=== PATIENT | male | born 2000 | race African-American/Black ===

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

== ENCOUNTER 2019-05-08 14:00 | Emergency (ER) | payer OTHER, SELFPAY ==
--- NOTE | 2019-05-08 14:49 | ER ---
Nurse's Notes [facility] Name: Ward Hall Jr Age: 18 yrs Sex: Male : 2000 Arrival Date: 05/08/2019 Time: 14:03 Bed 5 Private MD: Diagnosis: Acute pharyngitis Presentation: 05/08 14:06 Presenting complaint: Sore throat, body aches, and chills x 2 days. Denies N/V/D/fever. hb Transition of care: patient was not received from another setting of care. Onset of symptoms was May 07, 2019. Risk Assessment: Do you want to hurt yourself or someone else? Patient reports no desire to harm self or others. Initial Sepsis Screen: Does the patient meet any 2 criteria? No. Patient's initial sepsis screen is negative. Does the patient have a suspected source of infection? No. Patient's initial sepsis screen is negative. Care prior to arrival: None. 14:06 Method Of Arrival: Ambulatory hb 14:06 Acuity: EMILIO 4 hb Historical: - Allergies: 14:07 No Known Allergies; hb - Home Meds: 14:07 Zyrtec 10 mg Oral tab [Active]; hb - PMHx: 14:07 None; hb - PSHx: 14:07 Tonsillectomy; Ear Tubes; hb - Immunization history:: Adult Immunizations up to date. - Social history:: Smoking status: Patient/guardian denies using tobacco. - Ebola Screening: : No symptoms or risks identified at this time. Screenin:15 Abuse screen: Denies threats or abuse. Denies injuries from another. Nutritional ss screening: No deficits noted. Tuberculosis screening: Never had TB. Fall Risk None identified. Assessment: 14:15 General: Appears in no apparent distress. comfortable, Behavior is calm, cooperative, ss Reports feeling ill for 12-24 hours, fatigue for 12-24 hours. Pain: Complains of pain in generalized body aches Pain currently is 5 out of 10 on a pain scale. Quality of pain is described as aching, Pain began "last night" Is continuous. Neuro: Level of Consciousness is awake, alert, obeys commands, Oriented to person, place, time, situation. Cardiovascular: Capillary refill < 3 seconds is brisk in bilateral fingers. Respiratory: Airway is patent Respiratory effort is even, unlabored, Respiratory pattern is regular, symmetrical, Breath sounds are clear bilaterally. GI: Patient currently denies diarrhea, nausea, vomiting. : No signs and/or symptoms were reported regarding the genitourinary system. EENT: Nares are clear Oral mucosa is moist. Throat is clear. Derm: Skin is intact, is healthy with good turgor, Skin is dry, Skin is pink, warm \\T\\ dry. normal. Musculoskeletal: Circulation, motion, and sensation intact. Range of motion: intact in all extremities, Swelling absent. Vital Signs: 14:07 BP 120 / 69; Pulse 90; Resp 16; Temp 98.4; Pulse Ox 100% on R/A; Weight 68.95 kg; hb Height 5 ft. 10 in. (177.80 cm); Pain 5/10; 14:07 Body Mass Index 21.81 (68.95 kg, 177.80 cm) hb ED Course: 14:03 Patient arrived in ED. mr 14:04 Zina May FNP-C is [facility]. kb 14:04 Rene Payan MD is Attending Physician. kb 14:06 Triage completed. hb 14:07 Arm band placed on. hb 14:15 Meghan Perez, RN is Primary Nurse. ss 14:15 Patient has correct armband on for positive identification. Bed in low position. Call ss light in reach. 14:24 Flu Sent. ss 14:24 Strep Sent. ss 14:52 No provider procedures requiring assistance completed. IV discontinued, intact, ss bleeding controlled, No redness/swelling at site. Pressure dressing applied. Administered Medications: No medications were administered Outcome: 14:48 Discharge ordered by MD. kb 14:52 Discharged to home ambulatory. ss 14:52 Condition: good 14:52 Discharge instructions given to patient, Instructed on discharge instructions, follow up and referral plans. medication usage, Demonstrated understanding of instructions, follow-up care, medications. 14:52 Patient left the ED. ss Signatures: Zina May FNP-C FNP-Bonilla Aggie Chanel mr Meghan Perez, RN RN Delmi Ricketts RN RN
--- NOTE | 2019-05-08 14:49 | EDPHYS ---
Physician Documentation [facility] Name: Ward Hall Jr Age: 18 yrs Sex: Male : 2000 Arrival Date: 05/08/2019 Time: 14:03 Bed 5 Private MD: ED Physician Rene Payan HPI: 05/08 14:19 This 18 yrs old Black Male presents to ER via Ambulatory with complaints of Body aches. kb 14:20 The patient presents with sore throat. The patient describes throat pain as constant. kb Onset: The symptoms/episode began/occurred last night. Severity of symptoms: At their worst the symptoms were mild, moderate, in the emergency department the symptoms are unchanged. Modifying factors: The symptoms are alleviated by nothing, the symptoms are aggravated by swallowing, Patient's oral intake status: good Denies contact with similarly ill indivduals. Associated signs and symptoms: Pertinent positives: flu-like symptoms, myalgias, Pertinent negatives fever. The patient has not experienced similar symptoms in the past. The patient has not recently seen a physician. Historical: - Allergies: 14:07 No Known Allergies; hb - Home Meds: 14:07 Zyrtec 10 mg Oral tab [Active]; hb - PMHx: 14:07 None; hb - PSHx: 14:07 Tonsillectomy; Ear Tubes; hb - Immunization history:: Adult Immunizations up to date. - Social history:: Smoking status: Patient/guardian denies using tobacco. - Ebola Screening: : No symptoms or risks identified at this time. ROS: 14:17 Eyes: Negative for injury, pain, redness, and discharge, Neck: Negative for injury, kb pain, and swelling, Cardiovascular: Negative for chest pain, palpitations, and edema, Respiratory: Negative for shortness of breath, cough, wheezing, and pleuritic chest pain, Abdomen/GI: Negative for abdominal pain, nausea, vomiting, diarrhea, and constipation, Back: Negative for injury and pain, MS/Extremity: Negative for injury and deformity, Skin: Negative for injury, rash, and discoloration, Neuro: Negative for headache, weakness, numbness, tingling, and seizure. 14:17 Constitutional: Positive for body aches, Negative for chills, fatigue, fever, malaise, poor PO intake. 14:17 ENT: Positive for sore throat. Exam: 14:18 Constitutional: This is a well developed, well nourished patient who is awake, alert, kb and in no acute distress. Head/Face: Normocephalic, atraumatic. Neck: Trachea midline, no thyromegaly or masses palpated, and no cervical lymphadenopathy. Supple, full range of motion without nuchal rigidity, or vertebral point tenderness. No Meningismus. Chest/axilla: Normal chest wall appearance and motion. Nontender with no deformity. No lesions are appreciated. Cardiovascular: Regular rate and rhythm with a normal S1 and S2. No gallops, murmurs, or rubs. Normal PMI, no JVD. No pulse deficits. Respiratory: Lungs have equal breath sounds bilaterally, clear to auscultation and percussion. No rales, rhonchi or wheezes noted. No increased work of breathing, no retractions or nasal flaring. Abdomen/GI: Soft, non-tender, with normal bowel sounds. No distension or tympany. No guarding or rebound. No evidence of tenderness throughout. Back: No spinal tenderness. No costovertebral tenderness. Full range of motion. Skin: Warm, dry with normal turgor. Normal color with no rashes, no lesions, and no evidence of cellulitis. MS/ Extremity: Pulses equal, no cyanosis. Neurovascular intact. Full, normal range of motion. Neuro: Awake and alert, GCS 15, oriented to person, place, time, and situation. Cranial nerves II-XII grossly intact. Motor strength 5/5 in all extremities. Sensory grossly intact. Cerebellar exam normal. Normal gait. 14:18 ENT: External ear(s): are unremarkable, Ear canal(s): are normal, TM's: are normal, Nose: is normal, Mouth: is normal, Posterior pharynx: erythema, that is moderate. Vital Signs: 14:07 BP 120 / 69; Pulse 90; Resp 16; Temp 98.4; Pulse Ox 100% on R/A; Weight 68.95 kg; hb Height 5 ft. 10 in. (177.80 cm); Pain 5/10; 14:07 Body Mass Index 21.81 (68.95 kg, 177.80 cm) hb MDM: 14:04 Patient medically screened. kb 14:17 Data reviewed: vital signs, nurses notes. Data interpreted: Pulse oximetry: on room air kb is 100 %. Interpretation: normal. 14:48 Counseling: I had a detailed discussion with the patient and/or guardian regarding: the kb historical points, exam findings, and any diagnostic results supporting the discharge/admit diagnosis, lab results, the need for outpatient follow up, a family practitioner, to return to the emergency department if symptoms worsen or persist or if there are any questions or concerns that arise at home. 05/08 14:07 Order name: Flu; Complete Time: 14:48 kb 05/08 14:07 Order name: Strep; Complete Time: 14:48 kb 05/08 14:38 Order name: Throat Culture EDMS Administered Medications: No medications were administered Disposition: 14:57 Co-signature as Attending Physician, Rene Payan MD. rn Disposition: 05/08/19 14:48 Discharged to Home. Impression: Acute pharyngitis. - Condition is Stable. - Discharge Instructions: Pharyngitis, [id number], Sore Throat, [id number]. - Medication Reconciliation Form, Thank You Letter, Antibiotic Education, Prescription Opioid Use form. - Follow up: Emergency Department; When: As needed; Reason: Worsening of condition. Follow up: Private Physician; When: 2 - 3 days; Reason: Recheck today's complaints, Continuance of care, Re-evaluation by your physician. Signatures: Dispatcher [employer] EDMS Zina May, ELECTRONICS DESIGN ENGINEER-C ELECTRONICS DESIGN ENGINEER-Ckb Rene Payan MD MD rn Smirch, Shelby, RN RN ss Baxter, Heather, RN RN Corrections: (The following items were deleted from the chart) 14:52 14:48 05/08/2019 14:48 Discharged to Home. Impression: Acute pharyngitis. Condition is ss Stable. Forms are Medication Reconciliation Form, Thank You Letter, Antibiotic Education, Prescription Opioid Use. Follow up: Emergency Department; When: As needed; Reason: Worsening of condition. Follow up: Private Physician; When: 2 - 3 days; Reason: Recheck today's complaints, Continuance of care, Re-evaluation by your physician. kb
[2019-05-08 14:58] VITALS: BP 120/69; TEMP 98.4; O2SAT 100
== END 2019-05-08 14:52 | disposition home or self-care (01) ==
LOC: ER 14:00
DX: J02.9 Acute pharyngitis, unspecified (principal)
CPT/HCPCS: 87070; 87081; 87804; 99283

== ENCOUNTER 2022-12-07 22:24 | Emergency (ER) | payer OTHER, SELFPAY ==
[2022-12-07] MEDS ORDERED: LIDOCAINE 1% MPF 5 ML VIAL ONE (23:41)
[2022-12-07] MEDS ORDERED: HYDROCODONE/APAP 5/325 MG TAB ONE (23:41)
[2022-12-07] MEDS ORDERED: IBUPROFEN 400 MG TAB ONE (23:42)
[2022-12-07] MEDS ORDERED: BUPIVACAINE 0.5% PF 10 ML VIAL ONE (23:42)
--- NOTE | 2022-12-08 01:05 | ER ---
Nurse's Notes [facility] Name: Ward Hall Jr Age: 22 yrs Sex: Male : 2000 Arrival Date: 12/07/2022 Time: 22:24 Bed 9 Private MD: Diagnosis: Cutaneous abscess of right upper limb-right middle finger Presentation: 12/07 22:36 Chief complaint: Patient states: "My right middle finger has been swelling for the past mb9 2 days. I took Ibuprofen and put ice on it and it's not helping". Coronavirus screen: Vaccine status: Patient reports receiving the 2nd dose of the covid vaccine. Ebola Screen: No symptoms or risks identified at this time. Initial Sepsis Screen: Does the patient meet any 2 criteria? No. Patient's initial sepsis screen is negative. Does the patient have a suspected source of infection? No. Patient's initial sepsis screen is negative. Risk Assessment: Do you want to hurt yourself or someone else? Patient reports no desire to harm self or others. Onset of symptoms was December 07, 2022. 22:36 Method Of Arrival: Ambulatory mb9 22:36 Acuity: EMILIO 4 mb9 Triage Assessment: 22:38 General: Appears in no apparent distress. Behavior is cooperative. Pain: Complains of mb9 pain in right middle finger Pain currently is 10 out of 10 on a pain scale. Quality of pain is described as aching, throbbing, Pain began 2-3 days ago. Is continuous, Aggravated by increased activity. Neuro: Level of Consciousness is awake, alert, obeys commands, Oriented to person, place, time, situation, Appropriate for age. Cardiovascular: Patient's skin is warm and dry. Respiratory: Airway is patent Respiratory effort is even, unlabored, Respiratory pattern is regular, symmetrical. GI: No signs and/or symptoms were reported involving the gastrointestinal system. : No signs and/or symptoms were reported regarding the genitourinary system. Derm: Skin is pink, warm \\T\\ dry. Musculoskeletal: Range of motion: intact in all extremities, Swelling present in right middle finger. Historical: - Allergies: 22:37 No Known Allergies; mb9 - Home Meds: 12/08 01:25 Zyrtec 10 mg Oral tab [Active]; kl - PMHx: 05/03 22:37 None; mb9 - PSHx: 22:37 None; mb9 - Immunization history:: Adult Immunizations up to date. - Social history:: Smoking status: Reported history of juuling and/or vaping. Screenin/04 00:37 [facility] ED Fall Risk Assessment (Adult) History of falling in the last 3 months, kl including since admission No falls in past 3 months (0 pts) Confusion or Disorientation No (0 pts) Intoxicated or Sedated No (0 pts) Impaired Gait No (0 pts) Mobility Assist Device Used No (0 pt) Altered Elimination No (0 pt) Score/Fall Risk Level 0 - 2 = Low Risk Oriented to surroundings, Maintained a safe environment. Abuse screen: Denies threats or abuse. Nutritional screening: No deficits noted. Tuberculosis screening: No symptoms or risk factors identified. Assessment: 12/07 22:39 Reassessment: see triage assessment. mb9 12/08 00:36 Reassessment: Patient appears in no apparent distress at this time. Patient is alert, kl oriented x 3, equal unlabored respirations, skin warm/dry/pink. Patient states feeling better. Patient states symptoms have improved. Vital Signs: 12/07 22:36 BP 139 / 90; Pulse 74; Resp 18; Temp 98.5(O); Pulse Ox 100% ; Weight 74.84 kg; Height 5 mb9 ft. 9 in. ; 12/08 00:37 BP 128 / 80; Pulse 75; Resp 18; Temp 97.6(TE); Pulse Ox 99% on R/A; kl 12/07 22:36 Body Mass Index 24.37 (74.84 kg, 175.26 cm) 9 ED Course: 12/07 22:28 Patient arrived in ED. es 22:37 Triage completed. mb9 22:37 Arm band placed on. mb9 22:44 Nelson Aguilar PA is PHCP. cp 22:44 Crow Woods MD is Attending Physician. cp 12/08 00:37 Assist provider with I \\T\\ D: of an abscess on Set up I\\T\\D tray. Performed by Nelson HANNAH Dressing with Neosporin and 4X4s, tape Patient tolerated well. Patient did not have IV access during this emergency room visit. 01:04 Rober Mi MD is Referral Physician. cp 01:25 Patient has correct armband on for positive identification. kl Administered Medications: 12/07 23:39 Drug: HYDROcodone-acetaminophen PO 5 mg-325 mg 1 tabs Route: PO; 12/08 00:38 Follow up: Response: No adverse reaction; Marked relief of symptoms 12/07 23:40 Drug: Ibuprofen PO 800 mg Route: PO; 12/08 00:38 Follow up: Response: No adverse reaction; Marked relief of symptoms 00:38 Drug: Bupivacaine Infiltration (0.5 %) 5 ml {Note: administered per Nelson Aguilar .} kl Volume: 10 ml; Route: Infiltration; 00:39 Drug: Lidocaine Infiltration (1 %) 5 ml {Note: administered by Nelson Aguilar .} Volume: 5 kl ml; Route: Infiltration; 01:16 Drug: Trimethoprim-Sulfamethoxazole PO (160 mg-800 mg (DS) 1 tablet Route: PO; 01:24 Follow up: Response: No adverse reaction kl Medication: 01:25 VIS not applicable for this client. Outcome: 01:04 Discharge ordered by MD. cp 01:24 Discharged to home ambulatory. 01:24 Condition: improved 01:24 Discharge instructions given to patient, Instructed on discharge instructions, follow up and referral plans. medication usage, wound care, Demonstrated understanding of instructions, follow-up care, medications, wound care, Prescriptions given X 3. 01:25 Patient left the ED. Signatures: Zenaida Hayes RN Mabel Pagan Corey, PA PA cp Garcia, Cindy, RN RN cg Breneman, Mary Beth, RN RN mb9
--- NOTE | 2022-12-08 01:05 | EDPHYS ---
Physician Documentation [facility] Name: Ward Hall Jr Age: 22 yrs Sex: Male : 2000 Arrival Date: 12/07/2022 Time: 22:24 Bed 9 Private MD: ED Physician Crow Woods HPI: 12/07 23:30 This 22 yrs old Black Male presents to ER via Ambulatory with complaints of Finger pain.cp 23:30 The patient or guardian reports pain, swelling, tenderness. cp 23:30 The complaints affect the distal phalanx right middle finger. Onset: The cp symptoms/episode began/occurred 2 day(s) ago. Historical: - Allergies: 22:37 No Known Allergies; mb9 - Home Meds: 12/08 01:25 Zyrtec 10 mg Oral tab [Active]; kl - PMHx: 12/07 22:37 None; mb9 - PSHx: 22:37 None; mb9 - Immunization history:: Adult Immunizations up to date. - Social history:: Smoking status: Reported history of juuling and/or vaping. ROS: 23:35 MS/extremity: Positive for pain, swelling, tenderness, of the distal phalanx right cp middle finger, Negative for injury or acute deformity. 23:35 Constitutional: Negative for fever. cp 23:35 All other systems are negative. Exam: 23:35 Constitutional: The patient appears in no acute distress, alert, awake, non-toxic, well cp developed, well nourished, uncomfortable. 23:35 Musculoskeletal/extremity: Extremities: grossly normal except: noted in the proximal to nail of right middle finger: erythema, pain, swelling, tenderness, ROM: limited active range of motion, in the right middle finger, Perfusion: the extremity is normally perfused throughout, the right middle finger Sensation intact. Vital Signs: 22:36 BP 139 / 90; Pulse 74; Resp 18; Temp 98.5(O); Pulse Ox 100% ; Weight 74.84 kg; Height 5 mb9 ft. 9 in. ; 12/08 00:37 BP 128 / 80; Pulse 75; Resp 18; Temp 97.6(TE); Pulse Ox 99% on R/A; kl 12/07 22:36 Body Mass Index 24.37 (74.84 kg, 175.26 cm) mb9 Procedures: 01:00 I \T\ D: Incision and drainage was performed for an abscess of the right middle finger cp Prepped with Betadine, Anesthetized with digital block. Incised with #11 blade. Drained moderate amount purulent fluid. Dressing: sterile 4x4 gauze, the patient tolerated the procedure well. MDM: 12/07 23:13 Patient medically screened. cp 12/08 01:04 Data reviewed: vital signs, nurses notes. 12/07 23:30 Order name: I\T\D Setup; Complete Time: 23:32 cp Administered Medications: 12/07 23:39 Drug: HYDROcodone-acetaminophen PO 5 mg-325 mg 1 tabs Route: PO; 12/08 00:38 Follow up: Response: No adverse reaction; Marked relief of symptoms 12/07 23:40 Drug: Ibuprofen PO 800 mg Route: PO; 12/08 00:38 Follow up: Response: No adverse reaction; Marked relief of symptoms 00:38 Drug: Bupivacaine Infiltration (0.5 %) 5 ml {Note: administered per Nelson Page .} kl Volume: 10 ml; Route: Infiltration; 00:39 Drug: Lidocaine Infiltration (1 %) 5 ml {Note: administered by Nelson Page .} Volume: 5 kl ml; Route: Infiltration; 01:16 Drug: Trimethoprim-Sulfamethoxazole PO (160 mg-800 mg (DS) 1 tablet Route: PO; 01:24 Follow up: Response: No adverse reaction kl Disposition Summary: 12/08/22 01:04 Discharge Ordered Location: Home cp Problem: new cp Symptoms: have improved cp Condition: Stable cp Diagnosis - Cutaneous abscess of right upper limb - right middle finger cp Followup: cp - With: Rober Mi MD - When: 48 Hours - Reason: Worsening of condition Discharge Instructions: - Discharge Summary Sheet cp - Incision and Drainage cp - Paronychia cp Forms: - Work release form kl - Medication Reconciliation Form cp - Thank You Letter cp - Antibiotic Education cp - Prescription Opioid Use cp Prescriptions: - Ibuprofen 800 mg Oral Tablet - take 1 tablet by ORAL route every 8 hours As needed take with food; 30 tablet; cp Refills: 0, Product Selection Permitted - Ultram 50 mg Oral Tablet - take 1 tablet by ORAL route every 6 hours As needed; 12 tablet; Refills: 0, cp Product Selection Permitted - Bactrim DS 800-160 mg Oral Tablet - take 1 tablet by ORAL route every 12 hours for 10 days; 20 tablet; Refills: 0, cp Product Selection Permitted Addendum: 12/09/2022 01:43 Co-signature as Attending Physician, Crow Woods MD I agree with the assessment and k dr plan of care. Signatures: Zenaida Hayes RN RN kl Rittger, Kevin, MD MD [facility] Nelson Aguilar PA PA Nika Vitale RN RN Aggie Duque RN RN mb9
[2022-12-08] MEDS ORDERED: SMZ./TMP. 800/160 MG TABLET ONE (01:13)
[2022-12-08 02:23] VITALS: BP 128/80; TEMP 97.6; O2SAT 99
== END 2022-12-08 01:25 | disposition home or self-care (01) ==
LOC: ER 22:24
PROC: 0H9FXZZ Drainage of Right Hand Skin, External Approach (ICD-10-PCS; principal; 2022-12-08)
DX: L02.511 Cutaneous abscess of right hand (principal)
CPT/HCPCS: 99284; 26010; J2001